=== PATIENT | female | born 1980 | race Caucasian/White ===

== ENCOUNTER 2016-07-15 08:41 | Emergency (ER) | payer MEDICAID ==
[2016-07-15 08:48] VITALS: TEMP 98.2; BMI 27.6
[2016-07-15] MEDS ORDERED: NS 1,000 ML IV ONE (09:00)
[2016-07-15] MEDS ORDERED: MORPHINE 4 MG/ML INJECTION IV ONE ×2 (09:22→10:27)
[2016-07-15] MEDS ORDERED: ONDANSETRON HCL 4 MG/2 ML VIAL IV ONE (09:22)
[2016-07-15 09:23] LABS: AUTOMATED BASOPHIL 0.6 % (0-2); AUTOMATED EOSINOPHIL 2.7 % (0-5); AUTOMATED LYMPH 24.2 % (17-44); AUTOMATED MONOCYTE 6.8 % (3-10); AUTOMATED NEUTROPHIL 65.7 % (45-76); MPV 7.6 fL (7.4-10.4)
[2016-07-15 09:33] LABS: BLOOD UREA NITROGEN 11 MG/DL (7-17); CALCIUM 9.2 MG/DL (8.4-10.2); CALCULATED OSMOLALITY 268 MOs/Kg (270-290); CHLORIDE 108 mEq/L (98-107); GLUCOSE 97 mg/dL (70-99); SODIUM LEVEL 140 mEq/L (137-146); TOTAL PROTEIN 6.7 G/DL (6.3-8.2)
--- NOTE | 2016-07-15 09:41 | EDPRACDOC ---
- General Information Chief Complaint: Vaginal Bleeding Stated Complaint: VAGINAL BLEEDING/PREG Time Seen by Provider: 07/15/16 08:55 Information Source: Patient Mode of Arrival: Car Home Medications: Home Medications Vits W-Ca,Fe,FA(<1Mg) [] 1 each PO DAILY 07/13/13 Sertraline HCl [Zoloft] 200 mg PO DAILY 07/13/13 Hydrocodone Bit/Acetaminophen [[place] 10-325 Tablet] 1 each PO QID PRN 07/15/16 Ketorolac Tromethamine [Toradol] 10 mg PO Q6H PRN #20 tab 07/15/16 Allergies/Adverse Reactions: Allergies Allergy/AdvReac Type Severity Reaction Status Date / Time No Known Allergies Allergy Verified 07/15/16 10:20 - History of Present Illness Onset: 2 days HPI: PT SAID THAT SHE HAD A POSITIVE TEST AND THEN DEVELOPED RLQ ABD PAIN AND VAGINAL BLEEDING. SHE THINKS SHE IS ABOUT 4 WEEKS . Description: Reports: Spontaneous Location: Reports: Internal Vagina Relevant History: Reports: Currently Control Method: Reports: None Blood Type: Unknown Pain Severity: Moderate Vaginal Bleeding Description: Reports: Bright Red ED Past Medical History - History Reviewed No Past Medical History: Yes Patient has no past medical history - Patient Medical History Surgical History: Reports: Other (DECUBITUS ULCER REPAIR) Additional Past Surgical History: PELVIS AND KNEE SURGERY - Social Medical History Smoking Status: Heavy tobacco smoker (5 or more cigarettes/day or daily pipe/ cigar) ETOH: None Substance Abuse: None Lives In: Home EDM Review of Systems - Review of Systems ROS Negative Except as Marked: Yes All systems reviewed and were negative except as marked Gastrointestinal: Pain Genitourinary: Vaginal Bleeding - Physical Exam Constitutional: Alert (Awake), No apparent distress Oriented to: Time, Person, Place Last recorded Vital Signs: Last Vital Signs Temp 98.2 F 07/15/16 08:44 Pulse 93 07/15/16 08:44 Resp 18 07/15/16 08:44 BP 141/79 07/15/16 08:44 Pulse Ox 98 07/15/16 08:44 Oxygen Pulse Oxygen Saturation 98 O2 Device Room Air Oxygen Flow Rate Fraction of Inspired Oxygen ( FIO2) - HEENT Head: Normal ( normocephalic) Eye Exam: Normal (PERRL, EOMI, Sclera white) Oropharynx: Normal (Pharynx:Moist without exudate,Gums-no swelling) ENT EAC: Normal TMJ: Normal Nose: No Symptoms Reported (septum midline) Neck: Normal (FROM, trachea at midline) - Respiratory/Cardiovascular Respiratory: Normal - CTA (BBS clear to auscultation without adventitious sounds ) Cardiovascular: Normal (RRR without murmur, gallop or rub) - GI Auscultation: Normal Palpation: Normal Tenderness: Mild, RLQ - Bladder: Normal External: Normal Vagina: Blood Cervix: Blood Uterus: Normal size Adnexa: Right: Tender - Musculoskeletal Back: Normal (Non-Tender) Extremities: Normal (Normal tone, Pulses 2+ No cyanosis or edema, FROM) - Integumentary Skin: Normal, Warm, Dry Lymphatics: Normal (no adenopathy) - Neurologic Memory Impaired: Normal Motor Function: Normal (Normal tone, Pulses 2+ No cyanosis or edema, FROM) Cranial Nerve: Normal (CN II-X11 intact sensation, strength 5/5) Cerebellar: Normal Mood Description: Normal Perception: Normal - Results 07/15/16 09:10 07/15/16 09:10 WBC 12.0 xk/uL (3.8-10.8) H 07/15/16 09:10 RBC 4.35 xM/uL (4.20-5.40) 07/15/16 09:10 Hgb 13.0 g/dL (12.0-16.0) 07/15/16 09:10 Hct 38.2 % (36-47) 07/15/16 09:10 MCV 88 fL (81-99) 07/15/16 09:10 MCH 29.8 pg (27-32) 07/15/16 09:10 MCHC 33.9 g/dl (33-36) 07/15/16 09:10 RDW 14.0 % (11.5-14.5) 07/15/16 09:10 Plt Count 261 xk/uL (130-400) 07/15/16 09:10 MPV 7.6 fL (7.4-10.4) 07/15/16 09:10 Neut % (Auto) 65.7 % (45-76) 07/15/16 09:10 Lymph % (Auto) 24.2 % (17-44) 07/15/16 09:10 [place] % (Auto) 6.8 % (3-10) 07/15/16 09:10 Eos % (Auto) 2.7 % (0-5) 07/15/16 09:10 Baso % (Auto) 0.6 % (0-2) 07/15/16 09:10 Absolute Neuts (auto) 7.80 xk/uL (1.7-8.2) 07/15/16 09:10 Absolute Lymphs (auto) 2.88 xk/uL (0.65-4.75) 07/15/16 09:10 Sodium 140 mEq/L (137-146) 07/15/16 09:10 Potassium 4.2 mEq/L (3.5-5.1) 07/15/16 09:10 Chloride 108 mEq/L (98-107) H 07/15/16 09:10 Carbon Dioxide 25 mMOL/L (22-33) 07/15/16 09:10 Anion Gap 11 mEq/L (8-16) 07/15/16 09:10 BUN 11 MG/DL (7-17) 07/15/16 09:10 Creatinine 0.70 MG/DL (0.52-1.04) 07/15/16 09:10 Estimated GFR (MDRD) > 60 mL/min (>=60) 07/15/16 09:10 Glucose 97 mg/dL (70-99) 07/15/16 09:10 Calculated Osmolality 268 MOs/Kg (270-290) L 07/15/16 09:10 Calcium 9.2 MG/DL (8.4-10.2) 07/15/16 09:10 Total Bilirubin 0.2 MG/DL (0.2-1.3) 07/15/16 09:10 AST 18 IU/L (14-36) 07/15/16 09:10 ALT 28 IU/L (9-52) 07/15/16 09:10 Alkaline Phosphatase 72 IU/L (38-126) 07/15/16 09:10 Total Protein 6.7 G/DL (6.3-8.2) 07/15/16 09:10 Albumin 4.0 G/DL (3.5-5.0) 07/15/16 09:10 Blood Type O POSITIVE 07/15/16 09:10 Lab Results 07/15/16 07/15/16 07/15/16 09:10 09:10 09:10 WBC 12.0 H RBC 4.35 Hgb 13.0 Hct 38.2 MCV 88 MCH 29.8 MCHC 33.9 RDW 14.0 Plt Count 261 MPV 7.6 Neut % (Auto) 65.7 Lymph % (Auto) 24.2 [place] % (Auto) 6.8 Eos % (Auto) 2.7 Baso % (Auto) 0.6 Absolute Neuts (auto) 7.80 Absolute Lymphs (auto) 2.88 Sodium 140 Potassium 4.2 Chloride 108 H Carbon Dioxide 25 Anion Gap 11 BUN 11 Creatinine 0.70 Estimated GFR (MDRD) > 60 Glucose 97 Calculated Osmolality 268 L Calcium 9.2 Total Bilirubin 0.2 AST 18 ALT 28 Alkaline Phosphatase 72 Total Protein 6.7 Albumin 4.0 Blood Type O POSITIVE - Diagnostic Imaging Abdomen Image interpreted by: Radiologist Right ovarian cyst measuring 3.3 x 1.8 x 1.4 cm. This is almost certainly benign, and no specific imaging follow up is recommended according to the Society of Radiologists in Ultrasound 2010 Consensus Conference Statement (Margaret Campbell et al. Management of Asymptomatic Ovarian and Other Adnexal Cysts Imaged at [place]: Society of Radiologists in Ultrasound Consensus Conference Statement 2010. Radiology 256 (Feb 2010): 943-954.). Study otherwise unremarkable. Decision Time to Discharge: 11:50 - Departure Yes I personally saw and evaluated the patient. Disposition: Home Condition: Fair Final Diagnosis: Dysfunctional uterine bleeding, Right ovarian cyst Instructions: Dysfunctional Uterine Bleeding (ED) Education/Counseling Given To: Patient Education/Counseling Given Regarding: Diagnosis, Treatment, Follow Up Referrals: None,No Provider [Primary Care Provider] - One Week Eli Chaney DO [Staff Physician] - One Week Prescriptions: New Ketorolac Tromethamine [Toradol] 10 mg PO Q6H PRN #20 tab PRN Reason: Pain No Action Sertraline HCl [Zoloft] 200 mg PO DAILY Vits W-Ca,Fe,FA(<1Mg) [] 1 each PO DAILY Hydrocodone Bit/Acetaminophen [[place] 10-325 Tablet] 1 each PO QID PRN PRN Reason: Pain
[2016-07-15 09:50] LABS: LEUKOCYTES/URINE NEG (NEGATIVE); NITRITE/URINE NEG (NEGATIVE); RBC/URINE 0-2 (0-5); URINE OCCULT BLOOD 2+ (NEG/TRACE); WBC/URINE 0-2 (0-5)
[2016-07-15 09:50] LABS: QUANTITATIVE SERUM HCG < 2.4 mIU/mL (<5)
--- NOTE | 2016-07-15 11:49 | DIRPT ---
CLINICAL DATA: Right lower quadrant/ pelvic pain with vaginal bleeding EXAM: TRANSABDOMINAL AND TRANSVAGINAL ULTRASOUND OF PELVIS TECHNIQUE: Study was performed transabdominally to optimize pelvic field of view evaluation and transvaginally to optimize internal visceral architecture evaluation. COMPARISON: CT abdomen and pelvis January 26, 2014 FINDINGS: Uterus Measurements: 10.3 x 4.8 x 6.3 cm. No fibroids or other mass visualized. Endometrium Thickness: 6 mm. No focal abnormality visualized. Right ovary Measurements: 4.9 x 1.6 x 2.1 cm. There is a right ovarian cyst measuring 3.3 x 1.8 x 1.4 cm. No other right-sided extrauterine pelvic mass. Left ovary Measurements: 3.6 x 1.8 x 2.2 cm. Normal appearance/no adnexal mass. Other findings No abnormal free fluid. IMPRESSION: Right ovarian cyst measuring 3.3 x 1.8 x 1.4 cm. This is almost certainly benign, and no specific imaging follow up is recommended according to the Society of Radiologists in Ultrasound 2010 Consensus Conference Statement (Margaret Campbell et al. Management of Asymptomatic Ovarian and Other Adnexal Cysts Imaged at [place]: Society of Radiologists in Ultrasound Consensus Conference Statement 2010. Radiology 256 (Feb 2010): [phone].). Study otherwise unremarkable. Electronically Signed By: Aleks Goodman III, M.D. On: 07/15/2016 11:46
[2016-07-15 12:21] VITALS: BP 138/72; PULSE 80
[2016-07-17 14:38] LABS: CHLAMY BY NUCLEIC ACID AMP Negative (Negative)
[2016-07-17 14:45] LABS: GC BY NUCLEIC ACID AMP Negative (Negative)
== END 2016-07-15 12:20 | disposition home or self-care (01) ==
LOC: ED 08:41
DX: N93.8 Other specified abnormal uterine and vaginal bleeding (principal); N83.201 Unspecified ovarian cyst, right side; F17.200 Nicotine dependence, unspecified, uncomplicated
CPT/HCPCS: 36415; 76830; 76856; 80053; 81001; 84702; 85025; 86900; 86901; 87210; 87491; 87591; 96361; 96374; 96375; 96376; 99284; J2270; J2405